=== PATIENT | male | born 1980 | race Two or more races ===

== ENCOUNTER 2023-02-19 14:20 | Inpatient (IN) | payer MEDICAID ==
[~2023-02-19] VITALS: Ht 162.6 cm; Wt 81.2 kg
[2023-02-19] MEDS ORDERED: HYDROmorphone HCL 2 MG/ML VL/or syr IM ONE (14:45)
[2023-02-19] MEDS ORDERED: ACETAMINOPHEN 325 MG TAB PO ONE (14:45)
[2023-02-19] MEDS ORDERED: ONDANSETRON ODT 4 MG TAB PO ONE (14:45)
[2023-02-19 15:07] LABS: Amphetamine Screen, Urine Neg (NEGATIVE); Benzodiazephine Screen, Urine Neg (NEGATIVE)
[2023-02-19 15:08] LABS: Barbiturate Scree,Urine Neg (NEGATIVE); Cannabinoid Screen, Urine Neg (NEGATIVE); Cocaine Screen, Urine Neg (NEGATIVE); Opiate Scree,Urine Neg (NEGATIVE); Phencyclidine Screen, Urine Neg (NEGATIVE)
[2023-02-19 15:12] LABS: Urine Bacteria NONE SEEN /hpf (None Seen); Urine Blood TRACE /uL (Negative); Urine Clarity HAZY (Clear); Urine Color Yellow (Yellow); Urine Mucus FEW (None Seen); Urine Protein, UAD 2+ (Negative); Urine WBC 11 /hpf (0 - 3)
[2023-02-19 15:15] LABS: Basophils # (auto) 0.1 10 ^3/uL (0-0.2); Eosinophils # (auto) 0 10 ^3/uL (0-0.8); Eosinophils % (auto) 0.1 % (0.0-7.0); Hemoglobin 12.7 g/dL (13.5-17.5); Monocytes # (auto) 1.2 10 ^3/uL (0-1.3); Neutrophils # (auto) 14.5 10 ^3/uL (1.6-8.6)
[2023-02-19 15:17] LABS: Basophils % (auto) 0.5 % (0.0-2.0); Hematocrit 38.4 % (41.0-53.0); Lymphocytes # (auto) 1.3 10 ^3/uL (0.4-5.4); Lymphocytes % (auto) 7.7 % (10.0-50.0); Mean Corpuscular Hemoglobin 29.6 pg (28.0-32.0); Mean Corpuscular Volume 89.7 fL (80.0-100.0); Monocytes % (auto) 7.1 % (0.0-12.0); Neutrophils % (auto) 84.6 % (37.0-80.0); Red Blood Cells 4.28 10^6/uL (4.5-5.90); Red Cell Distribution Width 13.6 % (11.8-14.3); White Blood Cell 17.1 10^3/uL (4.4-10.8)
[2023-02-19 15:31] LABS: Blood Alcohol < 3.0 mg/dL (<10); Lipase 28 U/L (12-53)
[2023-02-19 15:34] LABS: Alanine Aminotransferase 30 U/L (7-40); Albumin 4.2 g/dL (3.2-4.8); Alkaline Phosphatase 128 U/L (46-116); Anion Gap 7 (5-15); Aspartate Aminotransferase 23 U/L (13-40); BUN/Creatinine Ratio 10.6 (10.0-20.0); Bilirubin, Total 0.6 mg/dL (0.2-1.0); Blood Urea Nitrogen 11 mg/dL (9-23); Calcium 8.7 mg/dL (8.7-10.4); Carbon Dioxide 24 mmol/L (20-30); Chloride 104 mmol/L (98-107); Glucose 128 mg/dL (74-106); Potassium 4.5 mmol/L (3.5-5.1); Sodium 135 mmol/L (136-145); Total Protein 7.3 g/dL (5.7-8.2)
[2023-02-19 15:43] LABS: CRP High Sensitivity 7.24 mg/dL (<1.0)
[2023-02-19] MEDS ORDERED: PIPERACILLIN-TAZOB 3.375GM 100 ML IV ONE (16:00)
[2023-02-19] MEDS ORDERED: DOCUSATE SOD 100 MG CAP PO PRN (18:00)
[2023-02-19] MEDS ORDERED: ONDANSETRON HCL 4 MG/2 ML VIAL IV PRN (18:00)
[2023-02-19 18:32] LABS: INR 1.09 (0.9-1.15); Prothrombin Time 11.4 sec (9.3-11.8)
[2023-02-19] MEDS ORDERED: VANCOMYCIN PER PHARMACY 0 MG IV SCH (19:30)
[2023-02-19] MEDS ORDERED: VANCOMYCIN 1GM/250ML 250 ML IV NR (19:45)
[2023-02-19 20:10] VITALS: O2SAT 97
[2023-02-19] MEDS: SODIUM CHLORIDE 0.9% 1,000 ML IV SCH (20:11)
[2023-02-20] VITALS (8 sets, daily range): BP systolic 108–128; BP diastolic 52–76; PULSE 70–82; RESP 16–18; TEMP 98.1–98.7; O2SAT 92–97
[2023-02-20] MEDS ORDERED: PIPERACILLIN-TAZOB 3.375GM 100 ML IV SCH (01:00)
[2023-02-20] MEDS: PIPERACILLIN-TAZOB 3.375GM 100 ML IV SCH ×3 (02:14→16:26)
[2023-02-20] MEDS: SODIUM CHLORIDE 0.9% 1,000 ML IV SCH ×3 (02:24→16:31)
[2023-02-20 06:18] LABS: Basophils # (auto) 0.1 10 ^3/uL (0-0.2); Basophils % (auto) 0.6 % (0.0-2.0); Eosinophils # (auto) 0.1 10 ^3/uL (0-0.8); Eosinophils % (auto) 0.4 % (0.0-7.0); Lymphocytes # (auto) 1.4 10 ^3/uL (0.4-5.4); Lymphocytes % (auto) 10.3 % (10.0-50.0); Mean Corpuscular Hemoglobin 29.9 pg (28.0-32.0); Mean Corpuscular Hgb Conc. 33.5 g/dL (32.0-36.0); Mean Corpuscular Volume 89.3 fL (80.0-100.0); Neutrophils # (auto) 11.4 10 ^3/uL (1.6-8.6); Neutrophils % (auto) 81.7 % (37.0-80.0); Red Blood Cells 4.03 10^6/uL (4.5-5.90); Red Cell Distribution Width 13.2 % (11.8-14.3); White Blood Cell 13.9 10^3/uL (4.4-10.8)
[2023-02-20 06:49] LABS: Alanine Aminotransferase 30 U/L (7-40); Albumin 3.9 g/dL (3.2-4.8); Alkaline Phosphatase 111 U/L (46-116); Anion Gap 6 (5-15); Aspartate Aminotransferase 20 U/L (13-40); BUN/Creatinine Ratio 13.7 (10.0-20.0); Blood Urea Nitrogen 13 mg/dL (9-23); Calcium 8.6 mg/dL (8.5-10.1); Carbon Dioxide 27 mmol/L (20-30); Chloride 104 mmol/L (98-107); Glucose 108 mg/dL (74-106); Potassium 4.3 mmol/L (3.5-5.1); Sodium 137 mmol/L (136-145)
[2023-02-20 06:50] LABS: Bilirubin, Total 0.4 mg/dL (0.2-1.0); Total Protein 6.7 g/dL (5.7-8.2)
[2023-02-20 07:04] LABS: INR 1.09 (0.9-1.15); Partial Thromboplastin Time 33.6 SEC (24.5-34.5); Prothrombin Time 11.4 sec (9.3-11.8)
[2023-02-20] MEDS ORDERED: VANCOMYCIN 1GM/250ML 250 ML IV ONE (09:00)
[2023-02-20] MEDS: VANCOMYCIN 1GM/250ML 250 ML IV SCH (18:24)
[2023-02-21] VITALS (8 sets, daily range): BP systolic 112–155; BP diastolic 76–82; PULSE 69–94; RESP 14–19; TEMP 97.4–98.9; O2SAT 95–99
[2023-02-21] MEDS: PIPERACILLIN-TAZOB 3.375GM 100 ML IV SCH ×3 (01:40→16:41)
[2023-02-21] MEDS: SODIUM CHLORIDE 0.9% 1,000 ML IV SCH ×2 (03:25→11:40)
[2023-02-21] MEDS: VANCOMYCIN 1GM/250ML 250 ML IV SCH ×2 (05:36→15:32)
[2023-02-21 06:15] LABS: Anion Gap 9 (5-15); Carbon Dioxide 22 mmol/L (20-30); Chloride 109 mmol/L (98-107); Potassium 4.2 mmol/L (3.5-5.1); Sodium 140 mmol/L (136-145)
[2023-02-21 06:16] LABS: Calcium 8.6 mg/dL (8.7-10.4)
[2023-02-21 06:21] LABS: BUN/Creatinine Ratio 8.1 (10.0-20.0); Blood Urea Nitrogen 8 mg/dL (9-23); Glucose 94 mg/dL (74-106)
[2023-02-21 06:22] LABS: Basophils # (auto) 0.1 10 ^3/uL (0-0.2); Basophils % (auto) 0.7 % (0.0-2.0); Eosinophils # (auto) 0.1 10 ^3/uL (0-0.8); Eosinophils % (auto) 0.6 % (0.0-7.0); Hematocrit 39.9 % (41.0-53.0); Hemoglobin 13.3 g/dL (13.5-17.5); Lymphocytes # (auto) 1.5 10 ^3/uL (0.4-5.4); Mean Corpuscular Hemoglobin 30.5 pg (28.0-32.0); Mean Corpuscular Hgb Conc. 33.5 g/dL (32.0-36.0); Mean Corpuscular Volume 91.3 fL (80.0-100.0); Monocytes # (auto) 0.7 10 ^3/uL (0-1.3); Monocytes % (auto) 6.4 % (0.0-12.0); Neutrophils % (auto) 77.3 % (37.0-80.0); Red Blood Cells 4.36 10^6/uL (4.5-5.90); Red Cell Distribution Width 13.4 % (11.8-14.3); White Blood Cell 10.3 10^3/uL (4.4-10.8)
[2023-02-21] MEDS ORDERED: OMNIPAQUE 12mg/ml 500ml ORAL SOLUTION PO ONE (08:49)
[2023-02-21] MEDS ORDERED: LIDOCAINE 2%HCL (LOCAL ANESTH.) INJ 10ml MDV ONE ×2 (10:59→13:01)
[2023-02-21] MEDS ORDERED: IOHEXOL 300 MG/ML 100ML BOTTLE IJ ONE (11:02)
[2023-02-21] MEDS ORDERED: MIDAZOLAM HCL 2MG/2ML 2ml VIAL (1mg/ml) IV ONE (11:45)
[2023-02-21] MEDS ORDERED: fentaNYL CITRATE 100 MCG/2 ML VL IV ONE (11:45)
[2023-02-21] MEDS ORDERED: MIDAZOLAM HCL 2MG/2ML 2ml VIAL (1mg/ml) ONE (11:51)
[2023-02-21] MEDS ORDERED: fentaNYL CITRATE 100 MCG/2 ML VL ONE (11:52)
[2023-02-21] MEDS: MORPHINE SULFATE INJ 2 MG/ml SYRG IV PRN (15:32)
[2023-02-21] MEDS: HYDROmorphone HCL 2 MG/ML VL/or syr IV PRN (20:46)
[2023-02-22] VITALS (7 sets, daily range): BP systolic 112–141; BP diastolic 70–81; PULSE 70–85; RESP 16–21; TEMP 97.9–98.5; O2SAT 92–98
[2023-02-22] MEDS: VANCOMYCIN 1GM/250ML 250 ML IV SCH ×3 (01:42→21:50)
[2023-02-22] MEDS: SODIUM CHLORIDE 0.9% 1,000 ML IV SCH ×4 (01:42→21:00)
[2023-02-22] MEDS: PIPERACILLIN-TAZOB 3.375GM 100 ML IV SCH ×3 (01:43→17:28)
[2023-02-22 07:28] LABS: Hematocrit 39.5 % (41.0-53.0); Mean Corpuscular Hemoglobin 29.4 pg (28.0-32.0); Mean Corpuscular Hgb Conc. 32.8 g/dL (32.0-36.0); Mean Corpuscular Volume 89.6 fL (80.0-100.0); Red Blood Cells 4.41 10^6/uL (4.5-5.90); Red Cell Distribution Width 13.2 % (11.8-14.3)
[2023-02-22 07:32] LABS: Chloride 107 mmol/L (98-107); Sodium 140 mmol/L (136-145)
[2023-02-22 07:33] LABS: Anion Gap 7 (5-15); Calcium 8.6 mg/dL (8.5-10.1); Carbon Dioxide 26 mmol/L (20-30)
[2023-02-22 07:38] LABS: BUN/Creatinine Ratio 7.9 (10.0-20.0); Blood Urea Nitrogen 9 mg/dL (9-23); Glucose 101 mg/dL (74-106)
[2023-02-22 07:39] LABS: Basophils % (manual) 0 (0.0-2.0); Blast Cells 0; Metamyelocytes % 0; Promyelocytes % 0; Reactive Lymphocytes 0
[2023-02-22 08:35] LABS: Band Neutrophils % (manual) 5; Eosinophils % (manual) 2 (0-7); Lymphocytes % (manual) 9 (10.0-50.0); Monocytes % (manual) 7 (0-12); Myelocytes % 1
[2023-02-22 08:36] LABS: Platelet Estimate Increased
[2023-02-22] MEDS: MORPHINE SULFATE INJ 2 MG/ml SYRG IV PRN (11:47)
[2023-02-22] MEDS: HYDROmorphone HCL 2 MG/ML VL/or syr IV PRN (17:41)
[2023-02-23] MEDS: PIPERACILLIN-TAZOB 3.375GM 100 ML IV SCH ×3 (01:05→18:01)
[2023-02-23 05:00] VITALS: BP 117/78; PULSE 73; RESP 18; TEMP 98.2; O2SAT 100
[2023-02-23 05:16] LABS: Eosinophils # (auto) 0.1 10 ^3/uL (0-0.8); Hematocrit 39.7 % (41.0-53.0); Lymphocytes # (auto) 1.3 10 ^3/uL (0.4-5.4); Monocytes # (auto) 0.9 10 ^3/uL (0-1.3)
[2023-02-23 05:19] LABS: Basophils # (auto) 0.1 10 ^3/uL (0-0.2); Basophils % (auto) 0.5 % (0.0-2.0); Eosinophils % (auto) 0.4 % (0.0-7.0); Hemoglobin 13.1 g/dL (13.5-17.5); Lymphocytes % (auto) 10.5 % (10.0-50.0); Mean Corpuscular Hemoglobin 29.6 pg (28.0-32.0); Mean Corpuscular Volume 89.5 fL (80.0-100.0); Monocytes % (auto) 6.9 % (0.0-12.0); Neutrophils # (auto) 10.4 10 ^3/uL (1.6-8.6); Neutrophils % (auto) 81.7 % (37.0-80.0); Red Blood Cells 4.43 10^6/uL (4.5-5.90); Red Cell Distribution Width 13.5 % (11.8-14.3); White Blood Cell 12.7 10^3/uL (4.4-10.8)
[2023-02-23] MEDS: SODIUM CHLORIDE 0.9% 1,000 ML IV SCH ×2 (05:20→17:58)
[2023-02-23 05:38] LABS: Alanine Aminotransferase 26 U/L (7-40); Albumin 3.9 g/dL (3.2-4.8); Alkaline Phosphatase 89 U/L (46-116); Anion Gap 6 (5-15); Aspartate Aminotransferase 17 U/L (13-40); Bilirubin, Total 0.5 mg/dL (0.2-1.0); Blood Urea Nitrogen 10 mg/dL (9-23); Calcium 8.4 mg/dL (8.7-10.4); Carbon Dioxide 27 mmol/L (20-30); Chloride 107 mmol/L (98-107); Glucose 105 mg/dL (74-106); Potassium 4.1 mmol/L (3.5-5.1); Sodium 140 mmol/L (136-145)
[2023-02-23 05:39] LABS: Total Protein 6.9 g/dL (5.7-8.2)
[2023-02-23] MEDS: VANCOMYCIN 1GM/250ML 250 ML IV SCH (06:30)
[2023-02-23 07:30] VITALS: PULSE 71; RESP 19; O2SAT 98
[2023-02-23 08:00] VITALS: PULSE 70
[2023-02-23 09:00] VITALS: BP 112/72; PULSE 71; RESP 21; TEMP 98; O2SAT 95
[2023-02-23] MEDS ORDERED: METR-344 PO (09:43)
[2023-02-23] MEDS ORDERED: LEVO750T40 PO (09:43)
[2023-02-23 12:45] VITALS: BP 136/85; PULSE 83; RESP 19; TEMP 99.2; O2SAT 94
[2023-02-23 16:47] VITALS: BP 131/83; PULSE 78; RESP 21; TEMP 97.7; O2SAT 96
== END 2023-02-23 18:05 | disposition home or self-care (01) | DRG 248 ==
LOC: ER 14:20 → TELE 18:03 → TELE-WESTW 23:13
PROVIDERS: ADMIT Internal Medicine
PROC: 0W9G30Z Drainage of Peritoneal Cavity with Drainage Device, Percutaneous Approach (ICD-10-PCS; principal; 2023-02-21)
DX: K35.33 Acute appendicitis with perforation, localized peritonitis, and gangrene, with abscess (principal); E87.1 Hypo-osmolality and hyponatremia; K76.0 Fatty (change of) liver, not elsewhere classified; K57.30 Diverticulosis of large intestine without perforation or abscess without bleeding; D75.839 Thrombocytosis, unspecified
CPT/HCPCS: 10005; 36415; 74150; 74176; 77012; 80048; 80053; 80202; 80307; 80320; 81001; 83690; 85007; 85025; 85027; 85610; 85730; 86141; 86850; 86900; 86901; 87077; 87186; 87205; 96365; C1729; G0378; J2001; J2250; J2543; Q0162

== ENCOUNTER 2023-02-25 13:18 | Emergency (ER) | payer MEDICAID ==
[~2023-02-25] VITALS: Ht 170.2 cm; Wt 91.0 kg
[~2023-02-25 13:18] MED LIST: LEVO750T40 PO; METR-344 PO
[2023-02-25 14:19] VITALS: BP 108/68; PULSE 77; RESP 18; TEMP 98.1; O2SAT 97
== END 2023-02-25 15:17 | disposition home or self-care (01) ==
LOC: ER 13:18
DX: Z48.815 Encounter for surgical aftercare following surgery on the digestive system (principal); Z90.49 Acquired absence of other specified parts of digestive tract; Z79.2 Long term (current) use of antibiotics; Z79.899 Other long term (current) drug therapy